=== PATIENT | male | born 1950 | race Caucasian/White ===

== ENCOUNTER 2017-10-22 12:26 | Day surgery (SDC) | payer MEDICARE ==
[2017-10-22] MEDS: NS 1,000 ML IV (13:29)
[2017-10-22] MEDS ORDERED: PROPOFOL 200 MG/20 ML VIAL As Ordered ×2 (14:30)
[2017-10-22] MEDS ORDERED: LIDOCAINE 2% INJ 100 MG/5 ML SDV (FOR ANES.) As Ordered (14:30)
[2017-10-22] MEDS ORDERED: MIDAZOLAM INJ 2 MG/2 ML VIAL (J2250) As Ordered (14:35)
== END 2017-10-22 15:24 | disposition home or self-care (01) ==
LOC: M OPP 12:26
DX: Z12.11 Encounter for screening for malignant neoplasm of colon (principal); Z86.010 Personal history of colon polyps; K64.0 First degree hemorrhoids; I25.10 Atherosclerotic heart disease of native coronary artery without angina pectoris; I10 Essential (primary) hypertension; E78.5 Hyperlipidemia, unspecified; Z95.5 Presence of coronary angioplasty implant and graft; K57.30 Diverticulosis of large intestine without perforation or abscess without bleeding; K21.9 Gastro-esophageal reflux disease without esophagitis; R12 Heartburn; Z86.718 Personal history of other venous thrombosis and embolism; M54.89 Other dorsalgia; G47.30 Sleep apnea, unspecified; K82.9 Disease of gallbladder, unspecified; R06.83 Snoring; E66.9 Obesity, unspecified; Z88.8 Allergy status to other drugs, medicaments and biological substances; Z91.030 Bee allergy status; Z79.82 Long term (current) use of aspirin; Z79.899 Other long term (current) drug therapy; Z79.01 Long term (current) use of anticoagulants; Z79.52 Long term (current) use of systemic steroids
CPT/HCPCS: G0105

== ENCOUNTER 2019-01-16 06:24 | Emergency (ER) | payer MEDICARE ==
[~2019-01-16] VITALS: Ht 172.7 cm; Wt 110.0 kg
[~2019-01-16 06:24] MED LIST: BENA25CA4 PO; COUM1TAB14 PO; PRED5TA PO; VITA500T PO; [UNRECOGNIZED DRUG - OTHER]; [UNRECOGNIZED DRUG - REMARK] IV
[2019-01-16] MEDS ORDERED: ONDANSETRON 4MG/2ML VIAL (J2405) IV PRN (07:30)
[2019-01-16] MEDS ORDERED: NS 1,000 ML IV ONE (07:30)
[2019-01-16] MEDS ORDERED: MORPHINE 4 MG/ML 1ML VIAL/SYRINGE (J2270) IV PRN (07:30)
[2019-01-16 09:16] LABS: APPEARANCE, URINE CLEAR (CLEAR); BACTERIA, URINE AUTO NEGATIVE (NEGATIVE); BILIRUBIN, URINE AUTO NEGATIVE (NEGATIVE); BLOOD, URINE BLOOD 1+ (NEGATIVE); COLOR, URINE YELLOW (YELLOW); GLUCOSE, URINE (UA) AUTO NEGATIVE (NEGATIVE); KETONE, URINE AUTO NEGATIVE (NEGATIVE); LEUKOCYTE ESTERASE, URINE AUTO NEGATIVE (NEGATIVE); MUCUS, URINE SMALL (NEGATIVE); NITRITE, URINE AUTO NEGATIVE (NEGATIVE); PROTEIN, URINE AUTO NEGATIVE (NEGATIVE); RBC, URINE AUTO 4 /HPF (0-3); SPECIFIC GRAVITY URINE AUTO 1.017 (1.002-1.035); SQUAMOUS EPITHELIAL CELL UR AU 0 /HPF (0-6); WBC, URINE AUTO 1 /HPF (0-3)
--- NOTE | 2019-01-16 09:26 | REP ---
CT ABDOMEN AND PELVIS WITHOUT CONTRAST: CT abdomen and pelvis performed without the use of intravenous contrast material. Sagittal and coronal reconstruction images are performed. Visualized lung bases demonstrate a calcified granuloma medially in the left lower lobe. Liver and spleen demonstrate multiple tiny calcified granulomas. The patient has had a prior cholecystectomy. The adrenals and pancreas are grossly unremarkable. There are multiple subcentimeter intrarenal calculi bilaterally, approximately six on the right and four on the left. There is moderate right hydronephrosis which is caused by an 8 mm calculus in the proximal right ureter. There is no left hydronephrosis. There is atherosclerotic calcification of the abdominal aortic without aneurysm. I see no adenopathy in the abdomen or pelvis. There is no free air or free fluid. I see no bowel wall thickening. No pelvic mass is seen. Urinary bladder is mildly distended and grossly unremarkable. There is a small left inguinal containing fat. There are degenerative changes of the spine. IMPRESSION: There is an 8 mm calculus in the proximal right ureter causing moderate right hydronephrosis. Multiple bilateral intrarenal calculi are also noted. Electronically Signed by Marshal Murillo MD 01/17/2019 11:49 A
[2019-01-16 09:31] LABS: BASO % 0.4 % (0.0-1.0); EOS % 0.4 % (0.0-3.0); HEMATOCRIT 41.8 % (42.0-52.0); HEMOGLOBIN 14.3 g/dl (13.5-17.5); LYMPH % 10.9 % (24.0-44.0); MEAN CORPUSCULAR HEMOGLOBIN 32.3 pg (27.0-33.0); MEAN CORPUSCULAR HGB CONC 34.2 g/dl (32.0-36.5); MEAN CORPUSCULAR VOLUME 94.4 fl (80.0-96.0); MONO # 0.9 10^3/uL (0.0-0.8); MONO % 9.4 % (0.0-5.0); NEUTROPHILS # 7.4 10^3/uL (1.8-7.7); NEUTROPHILS % 78.2 % (36.0-66.0); PLATELET COUNT, AUTOMATED 211 10^3/uL (150-450); RED BLOOD COUNT 4.43 10^6/uL (4.30-6.10); WHITE BLOOD COUNT 9.5 10^3/uL (4.0-10.0)
[2019-01-16 09:39] LABS: ALBUMIN 3.9 GM/DL (3.2-5.2); ALT/SGPT 26 U/L (12-78); BILIRUBIN,DIRECT 0.1 MG/DL (0.0-0.2); BILIRUBIN,TOTAL 0.5 MG/DL (0.2-1.0); BLOOD UREA NITROGEN 19 MG/DL (7-18); CALCIUM LEVEL 9.1 MG/DL (8.8-10.2); CARBON DIOXIDE LEVEL 23 MEQ/L (21-32); CHLORIDE LEVEL 106 MEQ/L (98-107); CREATININE FOR GFR 0.87 MG/DL (0.70-1.30); GLOMERULAR FILTRATION RATE > 60.0 (>49); GLUCOSE, FASTING 113 MG/DL (70-100); POTASSIUM SERUM 4.1 MEQ/L (3.5-5.1); SODIUM LEVEL 139 MEQ/L (136-145); TOTAL PROTEIN 7.6 GM/DL (6.4-8.2)
--- NOTE | 2019-01-16 09:49 | REP ---
CHEST, TWO VIEWS: Two views of the chest performed and compared to a prior study of 09/23/2013. There is mild bibasilar fibrotic change. There is no acute infiltrate. There does not appear to be a significant cardiomegaly. The mediastinal silhouette is unchanged. There are multiple metallic clips in the right upper quadrant of the abdomen. There are degenerative changes of the spine. IMPRESSION: Stable chronic findings without acute infiltrate. Electronically Signed by Marshal Murillo MD 01/17/2019 11:51 A
[2019-01-16 09:57] VITALS: BP 162/90
[2019-01-16] MEDS ORDERED: FLOM0.4C39 PO (10:07)
[2019-01-16] MEDS ORDERED: OXYC15TA76 PO (10:07)
--- NOTE | 2019-01-16 15:16 | ECGEPIP ---
[facility] - ED Test Date: 2019-01-16 Pat Name: SAMUEL TINEO Department: Room: - Gender: Male Director Of Analytical Development: : 1950 Requested By: Lo Ferguson PA-C Order Number: [id number] Reading MD: Elvie Raya Measurements Intervals [place] Rate: 73 P: 38 VA: 158 QRS: QRSD: 109 T: 71 QT: 401 QTc: 443 Interpretive Statements SINUS RHYTHM BORDERLINE LEFT AXIS DEVIATION LEFT VENTRICULAR HYPERTROPHY AND ST-T CHANGE NO PRIOR FOR COMPARISON Electronically Signed on 01-16-2019 15:16:29 EDT by Elvie Raya
== END 2019-01-16 10:28 | disposition home or self-care (01) ==
LOC: M ED 06:24
DX: N21.1 Calculus in urethra (principal); N20.0 Calculus of kidney; D64.9 Anemia, unspecified; I10 Essential (primary) hypertension; I25.10 Atherosclerotic heart disease of native coronary artery without angina pectoris; Z91.14 Patient's other noncompliance with medication regimen; G89.29 Other chronic pain; M54.9 Dorsalgia, unspecified; M54.30 Sciatica, unspecified side; J30.2 Other seasonal allergic rhinitis; Z86.718 Personal history of other venous thrombosis and embolism; Z87.891 Personal history of nicotine dependence; Z79.01 Long term (current) use of anticoagulants; Z79.899 Other long term (current) drug therapy; Z88.0 Allergy status to penicillin; Z88.8 Allergy status to other drugs, medicaments and biological substances; Z91.030 Bee allergy status

== ENCOUNTER → 2019-01-18 | Outpatient (CLI) | payer MEDICARE ==
[~2019-01-18] MED LIST changes: +FLOM0.4C39 PO; +MINO1TAB PO; +OXYB10TA PO; +OXYC15TA76 PO; +OXYC1TAB15 PO; +PYRI1TAB5 PO
[2019-01-18 19:33] LABS: APPEARANCE, URINE CLEAR (CLEAR); BACTERIA, URINE AUTO NEGATIVE (NEGATIVE); BILIRUBIN, URINE AUTO NEGATIVE (NEGATIVE); BLOOD, URINE BLOOD 1+ (NEGATIVE); COLOR, URINE YELLOW (YELLOW); GLUCOSE, URINE (UA) AUTO NEGATIVE (NEGATIVE); KETONE, URINE AUTO NEGATIVE (NEGATIVE); LEUKOCYTE ESTERASE, URINE AUTO TRACE (NEGATIVE); NITRITE, URINE AUTO NEGATIVE (NEGATIVE); PROTEIN, URINE AUTO NEGATIVE (NEGATIVE); RBC, URINE AUTO 1 /HPF (0-3); SPECIFIC GRAVITY URINE AUTO 1.013 (1.002-1.035); SQUAMOUS EPITHELIAL CELL UR AU 0 /HPF (0-6); WBC, URINE AUTO 3 /HPF (0-3)
[2019-01-18 20:04] LABS: INR 1.61; PROTHROMBIN TIME 19.4 SECONDS (12.1-14.4)
[2019-01-18 20:05] LABS: PARTIAL THROMBOPLASTIN TIME 37.1 SECONDS (25.4-37.6)
== END ==
LOC: M WUC 16:29
PROVIDERS: ATTEND Nurse Practitioner Family
DX: Z01.818 Encounter for other preprocedural examination (principal); N20.0 Calculus of kidney
CPT/HCPCS: 36415; 81001; 85610; 85730; 87086; G0463

== ENCOUNTER 2019-01-20 13:37 | Day surgery (SDC) | payer MEDICARE ==
[~2019-01-20] VITALS: Ht 172.7 cm; Wt 108.9 kg
[~2019-01-20 13:37] MED LIST changes: +LIDOCAINE 1% MDV 20ML VIAL SQ PRN; +LR 1,000 ML IV ONE; -MINO1TAB PO; -OXYB10TA PO; -OXYC1TAB15 PO; -PYRI1TAB5 PO
[2019-01-20] MEDS ORDERED: CIPROFLOXACIN/D5W 400 MG/200 ML BAG (J0744) As Ordered ONE (14:06)
[2019-01-20] MEDS ORDERED: CIPROFLOXACIN 400 MG in APPROPRIATE DILUENT 1 EA IV ONE (14:30)
[2019-01-20 14:52] LABS: INR 1.68
[2019-01-20] MEDS ORDERED: ePHEDrine SULFATE 25 MG/5 ML(5MG/ML) SYRINGE As Ordered ONE (15:44)
[2019-01-20] MEDS ORDERED: PROPOFOL 200 MG/20 ML VIAL As Ordered ONE (15:44)
[2019-01-20] MEDS ORDERED: LIDOCAINE 2% INJ 100 MG/5 ML SDV (FOR ANES.) As Ordered ONE (15:44)
[2019-01-20] MEDS ORDERED: fentaNYL 100 MCG/2 ML INJECTION (J3010) As Ordered ONE ×4 (15:44→17:38)
[2019-01-20] MEDS ORDERED: MIDAZOLAM INJ 2 MG/2 ML VIAL (J2250) As Ordered ONE (15:44)
[2019-01-20] MEDS ORDERED: ONDANSETRON 4MG/2ML VIAL (J2405) As Ordered ONE ×2 (15:52→17:38)
[2019-01-20] MEDS ORDERED: dexameTHASONE 4 MG/ML 1ML VIAL (J1100) As Ordered ONE (15:52)
[2019-01-20] MEDS ORDERED: METOCLOPRAMIDE INJ 10MG/2ML VIAL (J2765) As Ordered ONE (16:41)
[2019-01-20] MEDS ORDERED: ESMOLOL INJ 100MG/10ML VIAL As Ordered ONE (17:11)
[2019-01-20] MEDS ORDERED: oxyCODONE 5MG TAB As Ordered ONE (17:38)
[2019-01-20] MEDS: oxyCODONE 5MG TAB PO PRN ×2 (17:40→18:15)
[2019-01-20] MEDS: fentaNYL 100 MCG/2 ML INJECTION (J3010) IV PRN ×4 (17:40→17:55)
[2019-01-20] MEDS ORDERED: LR 1,000 ML IV SCH (17:45)
[2019-01-20] MEDS ORDERED: ONDANSETRON 4MG/2ML VIAL (J2405) IV PRN (17:45)
[2019-01-20] MEDS ORDERED: oxyBUTYnin 5 MG TAB PO ONE (17:45)
[2019-01-20] MEDS ORDERED: PYRI1TAB5 PO (17:51)
[2019-01-20] MEDS ORDERED: OXYB10TA PO (17:51)
[2019-01-20] MEDS ORDERED: MINO1TAB PO (17:51)
[2019-01-20] MEDS ORDERED: OXYC1TAB15 PO (17:51)
[2019-01-20 21:15] VITALS: BP 161/70
--- NOTE | 2019-01-21 07:49 | REP ---
C-ARM VIEWS DURING URETERAL STENT PLACEMENT: Five C-Arm views performed during ureteral stent placement. A right ureteral stent is placed with the proximal end coiled in the right renal pelvis and the distal end coiled in the urinary bladder. 11 seconds fluoroscopy time utilized. Electronically Signed by Marshal Murillo MD 01/24/2019 09:56 A
--- NOTE | 2019-01-22 11:31 | RO ---
DATE OF PROCEDURE: 01/20/2019 PREOPERATIVE DIAGNOSES: Right ureteral stone with hydroureteronephrosis with right renal stones and small left renal stones. POSTOPERATIVE DIAGNOSES: Right ureteral stone with hydroureteronephrosis with right renal stones and small left renal stones. PROCEDURE PERFORMED: Right ureteroscopic stone extraction with laser lithotripsy of ureteral stone, laser lithotripsy and basket extraction of renal stones, multilevel. Additional procedure is stent placement. SURGEON: Michael Zamora MD BASEBALL SCOUT: ANESTHESIA: General. INDICATION: This 68-year-old man with a history of chronic back pain presented with a CT scan showing an 8-mm stone in the right proximal ureter causing moderate hydroureteronephrosis, as well as bilateral renal stones with large volume stones on the right. He has been on oxycodone and Flomax. He is on chronic Coumadin therapy for deep venous thrombosis (DVT), which precludes the use of lithotripsy or percutaneous nephrostolithotomy in this case. DESCRIPTION OF PROCEDURE: After obtaining informed consent from the patient, he was taken to the operating room where after induction of adequate anesthetic, he was prepped and draped in the usual manner. The 22-Venezuelan diagnostic cystoscope was advanced into the bladder and the bladder inspected. No stones or abnormalities were noted. A wire was negotiated past the stone to the kidney under fluoroscopic control. We advanced the flexible ureterorenoscope without requirement of dilation to the stone. There was noted to be a fair amount of inflammatory response to the stone with some narrowing of the ureter just distal to it. We were able to get through this area, and I used the 200-micron Holmium laser fiber. We were able to break the stone into multiple pieces. Some of these displaced in the kidney. Others were irrigated to the bladder with some additional pieces removed to the basket. We then were able to pass the scope to the kidney and carefully inspected all calyces. Multiple large stones were encountered in the upper pole, mid kidney, and lower pole. We used the 200-micron Holmium laser fiber to break these stones into small pieces. The urine in the renal pelvis was quite murky, likely aggravated by the patient's chronic anticoagulation. We did break all visible stones but felt that with the large volume of sand and small fragments, he would likely need a second procedure in a few weeks to deal with evacuation of his large stone volume. We did remove a portion of the stone with a basket, and a single pass of the ureteroscope was required for this case. The procedure was concluded by re-passing the guidewire and passing the 6-Venezuelan universal stent over the wire positioned fluoroscopically in the kidney and bladder. The string was detached, the bladder emptied, and the patient to recovery in satisfactory condition. DISPOSITION: Dismissed home on oxybutynin 10 XL one daily, oxycodone 7.5 mg, Septra DS one by mouth at bedtime, and Pyridium 200 three times a day as needed dysuria. I would like him to return to the office to see in 2 weeks' time, at which time he can be pre-opped for a second-stage ureteroscopic stone extraction the following week. At that time, we should be able to safely use a ureteral access sheath to clear the right kidney. This plan is discussed with the patient's , and she is agreeable to this plan. He is dismissed home today. There were no intraoperative complications.
[2019-01-27 00:08] LABS: Uric Acid 100 % (.)
== END 2019-01-20 21:30 | disposition home or self-care (01) ==
LOC: M SDC 13:37
PROVIDERS: ATTEND Urology
DX: N13.2 Hydronephrosis with renal and ureteral calculous obstruction (principal); N20.0 Calculus of kidney; I25.10 Atherosclerotic heart disease of native coronary artery without angina pectoris; G47.30 Sleep apnea, unspecified; I10 Essential (primary) hypertension; E78.5 Hyperlipidemia, unspecified; K21.9 Gastro-esophageal reflux disease without esophagitis; Z91.030 Bee allergy status; Z88.0 Allergy status to penicillin; Z79.01 Long term (current) use of anticoagulants; Z79.899 Other long term (current) drug therapy
CPT/HCPCS: 36415; 52356; 74420; 82360; 85610; 88300; C1769; C2617; J0744; J1100; J2250; J2405; J2765; J3010

== ENCOUNTER → 2019-02-02 | Outpatient (CLI) | payer MEDICARE ==
[~2019-02-02] MED LIST changes: +ALLO10TA PO; +CODE30TA PO; -LIDOCAINE 1% MDV 20ML VIAL SQ PRN; -LR 1,000 ML IV ONE; +MINO1TAB PO; +OXYB10TA PO; +OXYC1TAB15 PO; +POTA10808 PO; +PYRI1TAB5 PO
[2019-02-02 13:07] LABS: HEMATOCRIT 38.4 % (42.0-52.0); HEMOGLOBIN 12.5 g/dl (13.5-17.5); MEAN CORPUSCULAR HEMOGLOBIN 31.6 pg (27.0-33.0); MEAN CORPUSCULAR HGB CONC 32.6 g/dl (32.0-36.5); MEAN CORPUSCULAR VOLUME 97.2 fl (80.0-96.0); PLATELET COUNT, AUTOMATED 265 10^3/uL (150-450); RED BLOOD COUNT 3.95 10^6/uL (4.30-6.10)
[2019-02-02 13:28] LABS: INR 1.74; PROTHROMBIN TIME 20.1 SECONDS (11.8-14.0)
[2019-02-02 13:29] LABS: PARTIAL THROMBOPLASTIN TIME 33.1 SECONDS (25.0-38.4)
[2019-02-02 13:32] LABS: BLOOD UREA NITROGEN 19 MG/DL (7-18); CALCIUM LEVEL 8.9 MG/DL (8.8-10.2); CARBON DIOXIDE LEVEL 26 MEQ/L (21-32); CHLORIDE LEVEL 109 MEQ/L (98-107); CREATININE FOR GFR 1.01 MG/DL (0.70-1.30); GLOMERULAR FILTRATION RATE > 60.0 (>49); GLUCOSE, FASTING 93 MG/DL (70-100); POTASSIUM SERUM 4.2 MEQ/L (3.5-5.1); SODIUM LEVEL 142 MEQ/L (136-145)
[2019-02-02 13:35] LABS: APPEARANCE, URINE HAZY (CLEAR); BACTERIA, URINE AUTO 1+ (NEGATIVE); BILIRUBIN, URINE AUTO NEGATIVE (NEGATIVE); BLOOD, URINE BLOOD 2+ (NEGATIVE); COLOR, URINE YELLOW (YELLOW); GLUCOSE, URINE (UA) AUTO NEGATIVE (NEGATIVE); KETONE, URINE AUTO NEGATIVE (NEGATIVE); LEUKOCYTE ESTERASE, URINE AUTO TRACE (NEGATIVE); MUCUS, URINE SMALL (NEGATIVE); NITRITE, URINE AUTO NEGATIVE (NEGATIVE); PROTEIN, URINE AUTO NEGATIVE (NEGATIVE); RBC, URINE AUTO 75 /HPF (0-3); SPECIFIC GRAVITY URINE AUTO 1.017 (1.002-1.035); SQUAMOUS EPITHELIAL CELL UR AU 0 /HPF (0-6); UROBILINOGEN, URINE AUTO 0.2 mg/dL (0.0-2.0); WBC, URINE AUTO 13 /HPF (0-3)
== END ==
LOC: M WUC 09:32
PROVIDERS: ATTEND Nurse Practitioner Family
DX: Z01.818 Encounter for other preprocedural examination (principal); N20.0 Calculus of kidney
CPT/HCPCS: 36415; 80048; 81001; 85027; 85610; 85730; 87086; G0463

== ENCOUNTER 2019-02-07 12:38 | Day surgery (SDC) | payer MEDICARE ==
[~2019-02-07] VITALS: Ht 172.7 cm; Wt 105.7 kg
[~2019-02-07 12:38] MED LIST changes: -ALLO10TA PO; +ALLOPURINOL 100 MG TAB PO SCH; +CIPROFLOXACIN 400 MG in APPROPRIATE DILUENT 1 EA IV ONE; -CODE30TA PO; +CONRAY-60 60% 50ML VIAL (Q9961) As Ordered ONE; +EMLA CREAM 5GM (LIDOCAINE/PRILOCAINE) TOP PRN; +LR 1,000 ML IV ONE; -OXYB10TA PO; +OXYB10TA2 PO; -POTA10808 PO
[2019-02-07] MEDS ORDERED: PROPOFOL 200 MG/20 ML VIAL As Ordered ONE ×2 (13:02→14:32)
[2019-02-07] MEDS ORDERED: LIDOCAINE 2% INJ 100 MG/5 ML SDV (FOR ANES.) As Ordered ONE (13:03)
[2019-02-07] MEDS ORDERED: ONDANSETRON 4MG/2ML VIAL (J2405) As Ordered ONE (13:09)
[2019-02-07] MEDS ORDERED: dexameTHASONE 4 MG/ML 1ML VIAL (J1100) As Ordered ONE (13:09)
[2019-02-07] MEDS ORDERED: MIDAZOLAM INJ 2 MG/2 ML VIAL (J2250) As Ordered ONE (13:10)
[2019-02-07] MEDS ORDERED: fentaNYL 100 MCG/2 ML INJECTION (J3010) As Ordered ONE (13:10)
[2019-02-07 13:41] LABS: INR 1.58; PROTHROMBIN TIME 18.6 SECONDS (11.8-14.0)
[2019-02-07] MEDS ORDERED: CODE30TA PO (13:51)
[2019-02-07] MEDS ORDERED: METOCLOPRAMIDE INJ 10MG/2ML VIAL (J2765) As Ordered ONE (14:32)
[2019-02-07] MEDS ORDERED: OXYC1TAB15 PO (15:57)
[2019-02-07] MEDS ORDERED: ANEXSIA, NORCO 7.5MG/325MG TABLET(HYDROCODONE/APAP) PO PRN (16:00)
[2019-02-07] MEDS: fentaNYL 100 MCG/2 ML INJECTION (J3010) IV PRN ×4 (16:04→16:19)
[2019-02-07] MEDS ORDERED: POTA10808 PO (16:12)
[2019-02-07] MEDS ORDERED: ALLO10TA PO (16:12)
[2019-02-07] MEDS ORDERED: ONDANSETRON 4MG/2ML VIAL (J2405) IV PRN (16:15)
[2019-02-07] MEDS ORDERED: METOCLOPRAMIDE INJ 10MG/2ML VIAL (J2765) IV PRN (16:15)
[2019-02-07] MEDS ORDERED: PERCOCET 5MG/325MG TAB PO PRN (16:15)
[2019-02-07] MEDS ORDERED: MEPERIDINE INJ 25 MG/ML VIAL (J2175) IV PRN (16:15)
[2019-02-07] MEDS ORDERED: LR 1,000 ML IV SCH (16:15)
--- NOTE | 2019-02-07 16:19 | REP ---
Retrograde pyelogram: Comparison is 01/20/2019. There is a right ureteral stent, as previously. The distal pigtails in satisfactory position. The proximal pigtail is excluded at the superior film margin. No calcifications are identified. The fluoroscopic exposure time is 17 seconds. The fluoroscopic images performed with last image hold technology and requires no additional radiation. Electronically Signed by Marshal Barahona MD 02/07/2019 04:11 P
[2019-02-07 17:35] VITALS: BP 188/89
[2019-02-07] MEDS ORDERED: POTASSIUM CITRATE 1080 MG (10MEQ) TAB PO SCH (18:00)
--- NOTE | 2019-02-07 21:52 | RO ---
DATE OF PROCEDURE: 02/07/2019 PREPROCEDURE DIAGNOSIS: Right renal and ureteral stones. POSTPROCEDURE DIAGNOSIS: Right renal and ureteral stones. PROCEDURE: Right ureteroscopic stone extraction with laser lithotripsy and basket extraction of stones, stent placement. SURGEON: Michael Zamora MD HOME SCHOOL TEACHER: ANESTHESIA: General. INDICATION: This 68-year-old man comes for a second stage procedure to deal with large volume stone disease on the right. He is on chronic anticoagulation because of atrial fibrillation. His previous stone analysis showed uric acid, urolithiasis. He reports marked improvement in chronic back pain and gait since treatment of his previous stone with stent placement. At that time, we were unable to completely clear his kidney of stones due to poor visibility and brought him back for a second stage procedure. We left him on his Coumadin therapy. INR today is 1.74. His culture is negative. DESCRIPTION OF PROCEDURE: After informed consent of the patient, he was taken to the operating where after induction of adequate anesthetic, he was prepped and draped in the usual manner. The 22-Japanese diagnostic cystoscope was advanced to the bladder. The stent was visualized and grasped with alligator forceps and withdrawn. The wire was passed to the kidney, and the 12/14 ureteral access sheath was advanced without difficulty to the proximal ureter. We then used the flexible ureterorenoscope to visualize all calyces. We removed multiple stone fragments from the renal pelvis. There were two large stone fragments that we took apart with the 200-micron Holmium laser fiber. We then used both the NGage and NCompass baskets to remove the remaining fragments from the kidney. Final inspection showed no significant stone remaining, and the ureter was carefully visualized on sheath removal. There was no significant ureteral injury. The wire was re-passed to the kidney, and the procedure was concluded with placement of a 6-Japanese [place] stent with string left attached. The bladder was emptied and the patient to recovery in satisfactory condition. DISPOSITION: Dismissed home to followup on 02/13/2019 with shireen for stent removal. Diet as tolerated. Activity light. Medications: Renew oxycodone. Continue Minocin 50 mg nightly, oxybutynin 5 mg three times a day and Pyridium, which the patient still has. 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
== END 2019-02-07 18:07 | disposition home or self-care (01) ==
LOC: M SDC 12:38
PROVIDERS: ATTEND Urology
DX: N20.0 Calculus of kidney (principal); N20.1 Calculus of ureter; I25.10 Atherosclerotic heart disease of native coronary artery without angina pectoris; I10 Essential (primary) hypertension; E78.5 Hyperlipidemia, unspecified; K21.9 Gastro-esophageal reflux disease without esophagitis; G47.30 Sleep apnea, unspecified; Z79.01 Long term (current) use of anticoagulants; Z79.899 Other long term (current) drug therapy; L40.8 Other psoriasis; Z88.8 Allergy status to other drugs, medicaments and biological substances; Z91.030 Bee allergy status
CPT/HCPCS: 36415; 52356; 74420; 85610; 88300; C1894; C2617; J0744; J1100; J2250; J2405; J2765; J3010

== ENCOUNTER → 2019-08-22 | Outpatient (REF) | payer MEDICARE ==
[~2019-08-22] MED LIST changes: +ALLO10TA PO; -ALLOPURINOL 100 MG TAB PO SCH; -CIPROFLOXACIN 400 MG in APPROPRIATE DILUENT 1 EA IV ONE; +CODE30TA PO; -CONRAY-60 60% 50ML VIAL (Q9961) As Ordered ONE; -EMLA CREAM 5GM (LIDOCAINE/PRILOCAINE) TOP PRN; -LR 1,000 ML IV ONE; +POTA10808 PO
== END ==
LOC: M LAB REF 12:17
PROVIDERS: ATTEND Internal Medicine
DX: Z87.442 Personal history of urinary calculi (principal)

== ENCOUNTER → 2019-09-06 | Outpatient (CLI) | payer MEDICARE ==
[~2019-09-06] MED LIST changes: -OXYB10TA2 PO; +OXYB10TA23 PO
--- NOTE | 2019-09-06 17:31 | REP ---
Right hand four views: Mineralization and joint spaces are normal. There is no fracture or dislocation. There are accessory ossicles inferior to the pisiform. There are no foreign bodies. Impression: Accessory ossicles inferior to the pisiform. Otherwise, negative right hand. Electronically Signed by Marshal Barahona MD 09/06/2019 05:22 P
== END ==
LOC: M WUC 15:45
PROVIDERS: ATTEND Nurse Practitioner Family
DX: M79.641 Pain in right hand (principal)

== ENCOUNTER → 2020-02-23 | Outpatient (REF) | payer MEDICARE ==
[~2020-02-23] MED LIST changes: -COUM1TAB14 PO; +COUM4TAB8 PO; +OXYC-1 PO; -OXYC15TA76 PO; +VITA-243 PO; -VITA500T PO
[2020-02-23 18:47] LABS: APPEARANCE, URINE CLOUDY (CLEAR); BACTERIA, URINE AUTO NEGATIVE (NEGATIVE); BILIRUBIN, URINE AUTO NEGATIVE (NEGATIVE); BLOOD, URINE BLOOD NEGATIVE (NEGATIVE); COLOR, URINE YELLOW (YELLOW); GLUCOSE, URINE (UA) AUTO NEGATIVE (NEGATIVE); KETONE, URINE AUTO NEGATIVE (NEGATIVE); LEUKOCYTE ESTERASE, URINE AUTO NEGATIVE (NEGATIVE); MUCUS, URINE SMALL (NEGATIVE); NITRITE, URINE AUTO NEGATIVE (NEGATIVE); PROTEIN, URINE AUTO NEGATIVE (NEGATIVE); RBC, URINE AUTO 0 /HPF (0-3); SPECIFIC GRAVITY URINE AUTO 1.016 (1.002-1.035); SQUAMOUS EPITHELIAL CELL UR AU 0 /HPF (0-6); UROBILINOGEN, URINE AUTO 0.2 mg/dL (0.0-2.0); WBC, URINE AUTO 1 /HPF (0-3)
== END ==
LOC: M SMT 17:28
PROVIDERS: ATTEND Nurse Practitioner Family
DX: N20.0 Calculus of kidney (principal)
CPT/HCPCS: 81001; G0463

== ENCOUNTER → 2020-02-28 | Outpatient (CLI) | payer MEDICARE ==
--- NOTE | 2020-02-28 16:00 | REP ---
RENAL ULTRASOUND: Real-time sonographic evaluation of the kidneys performed. The kidneys are normal in size and echotexture, right kidney measuring 12.7 x 5.2 x 6.6 cm and left kidney 12.5 x 6.1 x 6.9 cm. There is no hydronephrosis bilaterally. No renal mass or stone is visualized sonographically. Resistive index bilaterally with duplex Doppler evaluation of 0.67. IMPRESSION: Negative renal ultrasound.
== END ==
LOC: M PLAIMG 11:31
PROVIDERS: ATTEND Nurse Practitioner Family
DX: N20.0 Calculus of kidney (principal)

== ENCOUNTER 2020-11-20 03:38 | Emergency (ER) | payer MEDICARE ==
[~2020-11-20] VITALS: Ht 172.7 cm; Wt 109.0 kg
--- NOTE | 2020-11-20 04:36 | REPVR ---
PROCEDURE INFORMATION: Exam: XR Chest Exam date and time: 11/20/2020 4:00 AM Age: 70 years old Clinical indication: Chest pain; Type not specified TECHNIQUE: Imaging protocol: XR of the chest Views: 1 view. COMPARISON: CR Chest, 2 view PA, Lat 01/16/2019 8:20 AM FINDINGS: Lungs: There are bilateral lower lung zones, left more than right fibrotic like changes, grossly unchanged since the prior exam. Pleural spaces: Unremarkable. No pleural effusion. No pneumothorax. Heart/Mediastinum: Unremarkable. No cardiomegaly. Bones/joints: Unremarkable. IMPRESSION: Chronic scar like changes in the lower lung zones, left more than right with no radiographic evidence of acute infiltrate consolidation. Electronically signed by: Eric Jara On 11/20/2020 04:36:47 AM
[2020-11-20] MEDS ORDERED: ONDANSETRON 4MG/2ML VIAL IV ONE (05:00)
[2020-11-20] MEDS ORDERED: MORPHINE 4 MG/ML 1ML VIAL/SYRINGE (J2270) IV PRN (05:00)
[2020-11-20 05:13] LABS: BASO # 0.1 10^3/uL (0.0-0.2); BASO % 1.1 % (0.0-1.0); EOS # 0.2 10^3/uL (0.0-0.5); EOS % 3.7 % (0.0-3.0); HEMATOCRIT 41.6 % (42.0-52.0); HEMOGLOBIN 14.1 g/dl (13.5-17.5); LYMPH # 1.4 10^3/uL (1.5-5.0); LYMPH % 26.1 % (24.0-44.0); MEAN CORPUSCULAR HEMOGLOBIN 33.7 pg (27.0-33.0); MEAN CORPUSCULAR HGB CONC 33.9 g/dl (32.0-36.5); MEAN CORPUSCULAR VOLUME 99.5 fl (80.0-96.0); MONO # 0.8 10^3/uL (0.0-0.8); MONO % 13.9 % (2.0-8.0); NEUTROPHILS % 54.8 % (36.0-66.0); PLATELET COUNT, AUTOMATED 169 10^3/uL (150-450); RED BLOOD COUNT 4.18 10^6/uL (4.30-6.10); WHITE BLOOD COUNT 5.5 10^3/uL (4.0-10.0)
[2020-11-20 05:39] LABS: ALBUMIN 3.7 GM/DL (3.2-5.2); ALT/SGPT 39 U/L (12-78); BILIRUBIN,DIRECT < 0.1 MG/DL (0.0-0.2); BILIRUBIN,TOTAL 0.3 MG/DL (0.2-1.0); BLOOD UREA NITROGEN 23 MG/DL (7-18); CALCIUM LEVEL 8.9 MG/DL (8.8-10.2); CARBON DIOXIDE LEVEL 28 MEQ/L (21-32); CHLORIDE LEVEL 109 MEQ/L (98-107); CK-MB VALUE MASS 2.7 NG/ML (<3.6); CPK CREATINE PHOSPHOKINASE 98 U/L (39-308); GLOMERULAR FILTRATION RATE > 60.0 (>42); GLUCOSE, FASTING 105 MG/DL (70-100); LIPASE 73 U/L (73-393); MB/CK RELATIVE INDEX 2.76 (< OR =4); SODIUM LEVEL 140 MEQ/L (136-145); TROPONIN I 0.06 NG/ML (< 0.10)
[2020-11-20 05:43] LABS: INR 1.87; PARTIAL THROMBOPLASTIN TIME 35.4 SECONDS (24.2-38.5); PROTHROMBIN TIME 21.9 SECONDS (12.5-14.3)
[2020-11-20] MEDS ORDERED: ISOVUE-370 76% 100ML VIAL As Ordered ONE (05:49)
--- NOTE | 2020-11-20 06:24 | REPVR ---
PROCEDURE INFORMATION: Exam: CTA Chest With Contrast Exam date and time: 11/20/2020 5:43 AM Age: 70 years old Clinical indication: Chest pain; Type not specified; Additional info: Chest pain, HX of dvt TECHNIQUE: Imaging protocol: Computed tomographic angiography of the chest with contrast. 3D rendering (Not supervised by radiologist): MIP and/or 3D reconstructed images were created by the technologist. Radiation optimization: All CT scans at this facility use at least one of these dose optimization techniques: automated exposure control; mA and/or kV adjustment per patient size (includes targeted exams where dose is matched to clinical indication); or iterative reconstruction. Contrast material: ISO; Contrast volume: 75 ml; Contrast route: INTRAVENOUS (IV); COMPARISON: CR Chest, 2 view PA, Lat 11/20/2020 4:00 AM FINDINGS: Pulmonary arteries: Normal. No pulmonary emboli. Aorta: There is mild calcifications at the aortic root. No aortic aneurysm. No aortic dissection. Lungs: There is 1 cm medial left lung base calcified granuloma. Bibasilar linear atelectases and or scar with some volume loss and accentuation the extrapleural fat is noted. There is a 3 mm nodule in the right upper lobe on series 401, image 52 . There is 2 mm right apical subpleural lung nodule on series 401, image 36. There is 3 mm right upper lobe sub pleural nodule on axial image 59. There is 2-3 mm nodule in the left upper lobe on axial image 73. Pleural spaces: See "Lungs" finding. Heart: The heart is normal in size. There is no pericardial effusion. There is moderate coronary vascular calcifications. Lymph nodes: Unremarkable. No enlarged lymph nodes. Liver: Scattered small hepatic calcified granulomas seen. Gallbladder and bile ducts: The patient is status post cholecystectomy. Spleen: Multiple small calcified granuloma seen in the spleen. Bones/joints: There is anterior cervical spine flowing syndesmophytes. There is diffuse bony osteopenia. Soft tissues: Unremarkable. IMPRESSION: 1. No CT evidence of pulmonary embolism or right heart strain. 2. Mild bibasilar chronic changes with linear scar versus atelectasis with some volume loss. 3. Few scattered small parenchymal lung nodules the largest measuring 3 mm.For patients at low risk (minimal or absent history of smoking and of other known risk factors), no routine follow-up is indicated. For patients at high risk (history of smoking or of other known risk factors), consider optional CT Chest at 12 months. (Reference: Ludy) 4. Calcified splenic and hepatic granulomas and 1 cm medial left lung base calcified granuloma. 5. Moderate coronary vascular calcifications. REFERENCES: Ludy Hood, et al. Guidelines for Management of Incidental Pulmonary Nodules Detected on CT Images: From the Fleischner Society 2017. Radiology. 2017;284(1):228-243. Electronically signed by: Eric Jara On 11/20/2020 06:24:40 AM
[2020-11-20 08:16] LABS: CK-MB VALUE MASS 8.2 NG/ML (<3.6); MB/CK RELATIVE INDEX 6.67 (< OR =4); TROPONIN I 0.81 NG/ML (< 0.10)
[2020-11-20] MEDS ORDERED: HEPARIN SOD (PORCINE) 5000UNITS/ML 1ML VIAL/SYRINGE IV ONE (09:15)
[2020-11-20] MEDS ORDERED: HEPARIN DRIP 25,000 UNITS in IV 1 EA IV SCH (09:15)
[2020-11-20 10:31] VITALS: BP 158/73
--- NOTE | 2020-11-20 13:20 | ECGEPIP ---
[facility] - ED Test Date: 2020-11-20 Pat Name: SAMUEL TINEO Department: Room: - Gender: Male Boiler/Chiller Technician: : 1950 Requested By: BRIAN Sibley Order Number: [id number] Reading MD: Elvie Raya Measurements Intervals [place] Rate: 97 P: 47 NM: 162 QRS: -32 QRSD: 92 T: 47 QT: 370 QTc: 469 Interpretive Statements Normal sinus rhythm Left axis deviation Incomplete right bundle branch block Marked ST abnormality, possible subendocardial injury, compared 01/16/19, clinical c correlation required Electronically Signed on 11-20-2020 13:19:58 EDT by Elvie Raya
--- NOTE | 2020-11-20 13:21 | ECGEPIP ---
[facility] - ED Test Date: 2020-11-20 Pat Name: SAMUEL TINEO Department: Room: - Gender: Male Conditioner Tumbler: VC : 1950 Requested By: Jake Ferris Order Number: [id number] Reading MD: Elvie Raya Measurements Intervals [place] Rate: 76 P: 47 TN: 160 QRS: -23 QRSD: 90 T: 198 QT: 392 QTc: 441 Interpretive Statements Normal sinus rhythm Nonspecific ST and T wave abnormality less pronounced compared 11/20/20 4:40 Electronically Signed on 11-20-2020 13:20:40 EDT by Elvie Raya
== END 2020-11-20 10:20 | disposition short-term general hospital (02) ==
LOC: M ED 03:38
DX: I21.4 Non-ST elevation (NSTEMI) myocardial infarction (principal); R91.8 Other nonspecific abnormal finding of lung field; I25.10 Atherosclerotic heart disease of native coronary artery without angina pectoris; I25.2 Old myocardial infarction; Z86.718 Personal history of other venous thrombosis and embolism; Z88.0 Allergy status to penicillin; Z88.8 Allergy status to other drugs, medicaments and biological substances; Z91.030 Bee allergy status; Z79.899 Other long term (current) drug therapy; Z79.01 Long term (current) use of anticoagulants
CPT/HCPCS: 71045; 71275; 80048; 80076; 82550; 82553; 83690; 84484; 85025; 85610; 85730; 93005; 93041; 94760; 96365; 99285; J1644; Q9967

== ENCOUNTER → 2021-03-19 | Outpatient (CLI) | payer MEDICARE ==
[~2021-03-19] MED LIST changes: -OXYC1TAB15 PO; +OXYC7.5T3 PO
--- NOTE | 2021-03-19 13:41 | REP ---
INDICATION: KIDNEY STONES. COMPARISON: Renal ultrasound dated 02/28/2020 and abdomen/pelvis CT dated 01/16/2019. TECHNIQUE: Multiple ultrasonographic images of the kidneys and bladder. FINDINGS: On the comparison CT multiple small nonobstructive renal calculi are identified bilaterally in addition to an obstructive calculus in the right ureter. The size same findings were also present on the comparison ultrasound dated 02/28/2020. On the study today The right kidney measures 12.5 x 6.7 x 5.8 cm. The left kidney measures 12.6 by 5.6 x 6.6 cm. The kidneys are normal size. Renal cortical echogenicity is normal bilaterally. There is no hydronephrosis or hydroureter on the right or the left. No renal calculi are identified by ultrasound today. There are no solid or cystic renal masses on the right or the left. Bladder: The bladder is almost completely empty and cannot be further evaluated. IMPRESSION: No renal calculi are identified by ultrasound today. There is no hydronephrosis on the right or the left. There are no solid or cystic masses on the right or the left. Essentially negative renal ultrasound. The bladder is empty and cannot be further evaluated. <Electronically signed by Marshal Barahona > 03/19/21 [id number]
== END ==
LOC: M RAD 10:05
PROVIDERS: ATTEND Nurse Practitioner Family
DX: N20.0 Calculus of kidney (principal)

== ENCOUNTER → 2021-05-12 | Outpatient (CLI) | payer MEDICARE ==
[~2021-05-12] MED LIST changes: -MINO1TAB PO; +MINO45TA PO
--- NOTE | 2021-05-12 15:29 | REP ---
INDICATION: PAIN AFTER FALL. COMPARISON: None. TECHNIQUE: A single AP view of the pelvis was performed. FINDINGS: There is advanced asymmetric right hip joint space narrowing with some evidence of lateral subluxation. There is prominent marginal osteophytosis and subchondral sclerosis. Mild to moderate left hip joint space narrowing is identified. IMPRESSION: Chronic changes bilateral right greater than left as described above. <Electronically signed by Benny Burton > 05/12/21 [id number]
--- NOTE | 2021-05-12 15:32 | REP ---
INDICATION: PAIN AFTER FALL. COMPARISON: None. TECHNIQUE: Five views FINDINGS: There is bilateral marginal osteophytosis heaviest T12-L1 and L1-2 on the right where there is complete bridging osteophytosis. There is moderate posterior disc space narrowing at every level. Vertebral body height and alignment is within normal limits. Degenerative facet joint changes are present at every level bilaterally. There is anterior lipping at every level. IMPRESSION: Chronic changes as described above. <Electronically signed by Benny Burton > 05/12/21 [id number]
== END ==
LOC: M WUC 14:45
PROVIDERS: ATTEND Chiropractor
DX: M25.78 Osteophyte, vertebrae (principal); M54.5 Low back pain

== ENCOUNTER → 2021-06-13 | Outpatient (REF) | payer MEDICARE ==
[2021-06-16 18:07] LABS: Lyme Disease IgG/IgM Antibodie <0.91 ISR (0.00-0.90); Lyme Disease IgM Ab Quantitati <0.80 index (0.00-0.79)
== END ==
LOC: M LAB REF 17:19
PROVIDERS: ATTEND Internal Medicine
DX: Z11.9 Encounter for screening for infectious and parasitic diseases, unspecified (principal); W57.XXXA Bitten or stung by nonvenomous insect and other nonvenomous arthropods, initial encounter

== ENCOUNTER → 2021-09-26 | Outpatient (REF) | payer MEDICARE ==
[2021-09-26 17:32] LABS: PERCENT SATURATION 22.1 % (19.7-50.0)
== END ==
LOC: M LAB REF 16:14
PROVIDERS: ATTEND Internal Medicine
DX: M25.551 Pain in right hip (principal); M16.11 Unilateral primary osteoarthritis, right hip

== ENCOUNTER → 2022-03-17 | Outpatient (CLI) | payer MEDICARE | LOC: M RAD 09:51 | PROVIDERS: ATTEND Nurse Practitioner Women's Health | DX: N20.0 Calculus of kidney (principal) ==

== ENCOUNTER → 2022-10-06 | Outpatient (REF) | payer MEDICARE ==
[2022-10-06 19:01] LABS: EOSINOPHILS 2 % (0-3); LYMPHOCYTES 20 % (16-44); MONOCYTES 7 % (0-5); NEUTROPHILS 70 % (28-66); PLATELET ESTIMATE NORMAL (NORMAL)
== END ==
LOC: M LAB REF 16:22
PROVIDERS: ATTEND Internal Medicine
DX: D72.9 Disorder of white blood cells, unspecified (principal)

== ENCOUNTER 2022-10-30 10:08 | Emergency (ER) | payer MEDICARE ==
[~2022-10-30] VITALS: Ht 172.7 cm; Wt 106.8 kg
[2022-10-30] MEDS ORDERED: METO1TAB32 PO (10:26)
[2022-10-30 11:29] LABS: BASO # 0.1 10^3/uL (0.0-0.2); BASO % 0.8 % (0.0-1.0); EOS # 0.1 10^3/uL (0.0-0.5); EOS % 1.7 % (0.0-3.0); HEMATOCRIT 40.5 % (42.0-52.0); HEMOGLOBIN 13.7 g/dl (13.5-17.5); LYMPH # 0.8 10^3/uL (1.5-5.0); LYMPH % 11.9 % (24.0-44.0); MEAN CORPUSCULAR HEMOGLOBIN 34.5 pg (27.0-33.0); MEAN CORPUSCULAR HGB CONC 33.8 g/dl (32.0-36.5); MONO # 0.8 10^3/uL (0.0-0.8); NEUTROPHILS # 4.6 10^3/uL (1.5-8.5); NEUTROPHILS % 71.8 % (36.0-66.0); PLATELET COUNT, AUTOMATED 190 10^3/uL (150-450); RED BLOOD COUNT 3.97 10^6/uL (4.30-6.10); WHITE BLOOD COUNT 6.4 10^3/uL (4.0-10.0)
[2022-10-30 11:47] LABS: INR 2.64; PARTIAL THROMBOPLASTIN TIME 38.7 SECONDS (24.8-34.2); PROTHROMBIN TIME 28.6 SECONDS (12.5-14.5)
[2022-10-30 12:03] LABS: BLOOD UREA NITROGEN 11 MG/DL (9-23); CALCIUM LEVEL 8.8 MG/DL (8.3-10.6); CARBON DIOXIDE LEVEL 26 MMOL/L (20-31); CHLORIDE LEVEL 100 MMOL/L (98-107); CK-MB VALUE MASS 1.2 NG/ML (<3.6); CPK CREATINE PHOSPHOKINASE 124 U/L (46-171); CREATININE FOR GFR 0.66 MG/DL (0.70-1.30); GLOMERULAR FILTRATION RATE > 60.0 (>42); GLUCOSE, FASTING 113 MG/DL (74-106); MB/CK RELATIVE INDEX 0.96 (< OR =4); POTASSIUM SERUM 4.9 MMOL/L (3.5-5.1); SODIUM LEVEL 135 MMOL/L (136-145); THYROID STIMULATING HORMONE 2.504 uIU/ML (0.55-4.78)
[2022-10-30] MEDS ORDERED: MORPHINE 4 MG/ML 1ML VIAL IV ONE (12:20)
[2022-10-30 14:20] VITALS: BP 186/82
[2022-10-30 14:34] VITALS: O2SAT 98
== END 2022-10-30 15:00 | disposition home or self-care (01) ==
LOC: M ED 10:08
DX: S70.01XA Contusion of right hip, initial encounter (principal); M16.11 Unilateral primary osteoarthritis, right hip; W18.2XXA Fall in (into) shower or empty bathtub, initial encounter; I10 Essential (primary) hypertension; E78.5 Hyperlipidemia, unspecified; J45.909 Unspecified asthma, uncomplicated; K21.9 Gastro-esophageal reflux disease without esophagitis; Z88.0 Allergy status to penicillin; Z88.8 Allergy status to other drugs, medicaments and biological substances; Z91.030 Bee allergy status; Y92.009 Unspecified place in unspecified non-institutional (private) residence as the place of occurrence of the external cause; Z79.01 Long term (current) use of anticoagulants; Z79.810 Long term (current) use of selective estrogen receptor modulators (SERMs); Z79.899 Other long term (current) drug therapy
CPT/HCPCS: 70450; 72125; 73502; 80048; 82550; 82553; 84443; 84484; 85025; 85610; 85730; 93041; 94760; 96374; 99285; J2270

== ENCOUNTER → 2023-11-09 | Outpatient (REF) | payer MEDICARE ==
[~2023-11-09] MED LIST changes: +METO1TAB32 PO; +PERC5TAB12 PO
[2023-11-09 20:04] LABS: ATYPICAL LYMPH 2 % (0-5); EOSINOPHILS 5 % (0-3); LYMPHOCYTES 24 % (16-44); MONOCYTES 4 % (0-5); NEUTROPHILS 65 % (28-66); PLATELET ESTIMATE NORMAL (NORMAL)
== END ==
LOC: M LAB REF 16:44
PROVIDERS: ATTEND Internal Medicine
DX: D72.9 Disorder of white blood cells, unspecified (principal)

== ENCOUNTER → 2023-12-17 | Outpatient (CLI) | payer MEDICARE | LOC: M RAD 07:41 | PROVIDERS: ATTEND Internal Medicine | DX: K76.0 Fatty (change of) liver, not elsewhere classified (principal) ==

== ENCOUNTER → 2024-05-16 | Outpatient (REF) | payer MEDICARE ==
[2024-05-16 16:33] LABS: INR 3.44; PROTHROMBIN TIME 33.4 SECONDS (12.5-14.5)
== END ==
LOC: M LAB REF 16:07
PROVIDERS: ATTEND Internal Medicine
DX: Z86.718 Personal history of other venous thrombosis and embolism (principal); Z79.01 Long term (current) use of anticoagulants

== ENCOUNTER 2024-08-27 08:21 | Emergency (ER) | payer MEDICARE ==
[~2024-08-27] VITALS: Ht 172.7 cm; Wt 117.5 kg
[~2024-08-27 08:21] MED LIST changes: -POTA10808 PO; +POTA10809 PO
[2024-08-27 08:25] VITALS: BP 180/90; TEMP 98.2; O2SAT 96
[2024-08-27 09:21] LABS: BASO # 0.1 10^3/uL (0.0-0.2); BASO % 1.3 % (0.0-1.0); EOS # 0.3 10^3/uL (0.0-0.5); HEMOGLOBIN 14.5 g/dl (13.5-17.5); LYMPH # 1.3 10^3/uL (1.5-5.0); LYMPH % 20.4 % (24.0-44.0); MEAN CORPUSCULAR HEMOGLOBIN 36.2 pg (27.0-33.0); MEAN CORPUSCULAR HGB CONC 33.7 g/dl (32.0-36.5); MEAN CORPUSCULAR VOLUME 107.2 fl (80.0-96.0); MONO # 0.7 10^3/uL (0.0-0.8); MONO % 11.4 % (2.0-8.0); NEUTROPHILS # 3.9 10^3/uL (1.5-8.5); NEUTROPHILS % 62.3 % (36.0-66.0); PLATELET COUNT, AUTOMATED 174 10^3/uL (150-450); RED BLOOD COUNT 4.01 10^6/uL (4.30-6.10); WHITE BLOOD COUNT 6.2 10^3/uL (4.0-10.0)
[2024-08-27 09:34] LABS: INR 2.52; PROTHROMBIN TIME 27.2 SECONDS (12.5-14.5)
[2024-08-27] MEDS ORDERED: ISOVUE-370 76% 100ML VIAL As Ordered ONE (09:41)
[2024-08-27] MEDS: CLINDAMYCIN 900 MG in IV 1 EA IV ONE (10:55)
[2024-08-27 11:21] LABS: HEMOGLOBIN A1c 6.4 % (4.0-6.0)
[2024-08-27] MEDS ORDERED: CLEO300C2 PO (11:41)
== END 2024-08-27 12:21 | disposition home or self-care (01) ==
LOC: M ED 08:21
DX: K11.20 Sialoadenitis, unspecified (principal); I73.9 Peripheral vascular disease, unspecified; I65.23 Occlusion and stenosis of bilateral carotid arteries; J45.909 Unspecified asthma, uncomplicated; K21.9 Gastro-esophageal reflux disease without esophagitis; Z87.442 Personal history of urinary calculi; Z88.0 Allergy status to penicillin; Z88.8 Allergy status to other drugs, medicaments and biological substances; Z91.030 Bee allergy status; Z91.048 Other nonmedicinal substance allergy status; Z86.718 Personal history of other venous thrombosis and embolism; Z79.899 Other long term (current) drug therapy; Z79.01 Long term (current) use of anticoagulants
CPT/HCPCS: 70491; 80047; 83036; 85025; 85610; 86140; 96374; 99284; J0737; Q9967

== ENCOUNTER → 2024-11-07 | Outpatient (REF) | payer MEDICARE ==
[~2024-11-07] MED LIST changes: +CLEO300C2 PO
[2024-11-07 17:04] LABS: INR 2.39; PROTHROMBIN TIME 26.2 SECONDS (12.5-14.5)
[2024-11-07 18:55] LABS: ATYPICAL LYMPH 1 % (0-5); BASOPHILS 1 % (0-1); EOSINOPHILS 1 % (0-3); LYMPHOCYTES 19 % (16-44); MONOCYTES 4 % (0-5); NEUTROPHILS 74 % (28-66)
[2024-11-07 18:57] LABS: PLATELET CLUMPS SMALL AMT; PLATELET ESTIMATE NORMAL (NORMAL)
== END ==
LOC: M LAB REF 16:45
PROVIDERS: ATTEND Internal Medicine
DX: D72.9 Disorder of white blood cells, unspecified (principal); Z79.01 Long term (current) use of anticoagulants

== ENCOUNTER → 2024-11-21 | Outpatient (CLI) | payer MEDICARE ==
[~2024-11-21] MED LIST changes: +CVS1CAP2 PO; +VANC125C13 PO; +WARF-20
== END ==
LOC: M RAD 10:46
PROVIDERS: ATTEND Internal Medicine
DX: I73.9 Peripheral vascular disease, unspecified (principal)

== ENCOUNTER 2024-11-22 12:23 | Emergency (ER) | payer MEDICARE ==
[~2024-11-22] VITALS: Ht 172.7 cm; Wt 117.9 kg
[~2024-11-22 12:23] MED LIST changes: -CVS1CAP2 PO; -VANC125C13 PO; -WARF-20
[2024-11-22] MEDS ORDERED: WARF-20 (12:36)
[2024-11-22 13:27] LABS: BASO # 0.1 10^3/uL (0.0-0.2); BASO % 0.7 % (0.0-1.0); EOS # 0.3 10^3/uL (0.0-0.5); EOS % 2.2 % (0.0-3.0); HEMATOCRIT 44.6 % (42.0-52.0); HEMOGLOBIN 15.1 g/dl (13.5-17.5); LYMPH # 1.5 10^3/uL (1.5-5.0); LYMPH % 11.3 % (24.0-44.0); MEAN CORPUSCULAR HEMOGLOBIN 36.8 pg (27.0-33.0); MEAN CORPUSCULAR HGB CONC 33.9 g/dl (32.0-36.5); MEAN CORPUSCULAR VOLUME 108.8 fl (80.0-96.0); MONO # 1.7 10^3/uL (0.0-0.8); MONO % 12.6 % (2.0-8.0); NEUTROPHILS # 9.6 10^3/uL (1.5-8.5); NEUTROPHILS % 71.5 % (36.0-66.0); PLATELET COUNT, AUTOMATED 204 10^3/uL (150-450); WHITE BLOOD COUNT 13.5 10^3/uL (4.0-10.0)
[2024-11-22 14:02] LABS: ALBUMIN 2.4 G/DL (3.2-5.2); ALKALINE PHOSPHATASE 105 U/L (40-129); ALT/SGPT 60 U/L (7.0-40); AST/SGOT 80 U/L (<34); BILIRUBIN,DIRECT 0.3 MG/DL (<0.4); BILIRUBIN,TOTAL 0.6 MG/DL (0.3-1.2); BLOOD UREA NITROGEN 13 MG/DL (9-23); CARBON DIOXIDE LEVEL 24 MMOL/L (20-31); CHLORIDE LEVEL 98 MMOL/L (98-107); CREATININE FOR GFR 0.81 MG/DL (0.70-1.30); GLOMERULAR FILTRATION RATE > 90.0 (>42); GLUCOSE, FASTING 139 MG/DL (74-106); LIPASE 21 U/L (12-53); POTASSIUM SERUM 4.3 MMOL/L (3.5-5.1); SODIUM LEVEL 136 MMOL/L (136-145); TOTAL PROTEIN 6.4 G/DL (5.7-8.2)
[2024-11-22] MEDS ORDERED: ISOVUE-370 76% 100ML VIAL As Ordered ONE (15:01)
[2024-11-22] MEDS: NS (Normal Saline) 0.9% 1,000 ML IV ONE (17:55)
[2024-11-22 18:30] VITALS: BP 134/63; O2SAT 95
[2024-11-22 18:46] VITALS: TEMP 100.2
[2024-11-22] MEDS: ACETAMINOPHEN 325 MG TAB PO ONE (18:57)
[2024-11-22] MEDS ORDERED: VANC125C13 PO (19:07)
[2024-11-22] MEDS ORDERED: CVS1CAP2 PO (19:10)
== END 2024-11-22 19:31 | disposition home or self-care (01) ==
LOC: M ED 12:23
DX: A04.72 Enterocolitis due to Clostridium difficile, not specified as recurrent (principal); J91.8 Pleural effusion in other conditions classified elsewhere; J98.11 Atelectasis; K76.0 Fatty (change of) liver, not elsewhere classified; K40.20 Bilateral inguinal hernia, without obstruction or gangrene, not specified as recurrent; I25.2 Old myocardial infarction; K21.9 Gastro-esophageal reflux disease without esophagitis; J45.909 Unspecified asthma, uncomplicated; F10.10 Alcohol abuse, uncomplicated; Z88.0 Allergy status to penicillin; Z88.8 Allergy status to other drugs, medicaments and biological substances; Z91.030 Bee allergy status; Z79.899 Other long term (current) drug therapy; Z79.01 Long term (current) use of anticoagulants
CPT/HCPCS: 74177; 80048; 80076; 83690; 85025; 87507; 93041; 96360; 99285; Q9967

== ENCOUNTER 2024-11-29 14:20 | Inpatient (IN) | payer MEDICARE ==
[~2024-11-29] VITALS: Ht 172.7 cm; Wt 116.0 kg
[~2024-11-29 14:20] MED LIST changes: +CVS1CAP2 PO; +VANC125C13 PO; +WARF-20 PO
[2024-11-29] MEDS: NS (Normal Saline) 0.9% 1,000 ML IV ONE (15:10)
[2024-11-29 16:04] LABS: BASO # 0.1 10^3/uL (0.0-0.2); BASO % 0.8 % (0.0-1.0); EOS # 0.1 10^3/uL (0.0-0.5); EOS % 1.3 % (0.0-3.0); HEMATOCRIT 38.7 % (42.0-52.0); HEMOGLOBIN 13.2 g/dl (13.5-17.5); LYMPH % 13.5 % (24.0-44.0); MEAN CORPUSCULAR HEMOGLOBIN 37.3 pg (27.0-33.0); MEAN CORPUSCULAR HGB CONC 34.1 g/dl (32.0-36.5); MEAN CORPUSCULAR VOLUME 109.3 fl (80.0-96.0); MONO # 0.6 10^3/uL (0.0-0.8); MONO % 7.7 % (2.0-8.0); NEUTROPHILS # 5.4 10^3/uL (1.5-8.5); NEUTROPHILS % 75.4 % (36.0-66.0); PLATELET COUNT, AUTOMATED 208 10^3/uL (150-450); RED BLOOD COUNT 3.54 10^6/uL (4.30-6.10); WHITE BLOOD COUNT 7.2 10^3/uL (4.0-10.0)
[2024-11-29] MEDS ORDERED: FLOM0.4C39 PO (16:14)
[2024-11-29] MEDS ORDERED: VANC125C13 PO (16:14)
[2024-11-29] MEDS ORDERED: CVS1CAP2 PO (16:14)
[2024-11-29] MEDS ORDERED: ASPI81TA26 PO (16:17)
[2024-11-29] MEDS ORDERED: OLME20TA50 PO (16:17)
[2024-11-29] MEDS ORDERED: TRAM50TA2 PO (16:17)
[2024-11-29] MEDS ORDERED: HOME MED LIST COMPLETE! XX SCH (16:20)
[2024-11-29 16:32] LABS: LIPASE 20 U/L (12-53)
[2024-11-29 16:48] LABS: KETONE, URINE AUTO RFX NEGATIVE (NEGATIVE); LEUKOCYTE ESTERASE UR AUTO RFX NEGATIVE (NEGATIVE); NITRITE, URINE AUTO RFX NEGATIVE (NEGATIVE); RBC, URINE AUTO RFX 1 /HPF (0-3); SQUAM EPITHELIAL CELL UR AURFX 0 /HPF (0-6); WBC, URINE AUTO RFX 1 /HPF (0-3)
[2024-11-29 16:50] LABS: ALBUMIN 1.4 G/DL (3.2-5.2); ALKALINE PHOSPHATASE 57 U/L (40-129); ALT/SGPT 30 U/L (7.0-40); AST/SGOT 44 U/L (<34); BILIRUBIN,DIRECT 0.2 MG/DL (<0.4); BILIRUBIN,TOTAL 0.3 MG/DL (0.3-1.2); BLOOD UREA NITROGEN 8 MG/DL (9-23); CALCIUM LEVEL 4.4 MG/DL (8.3-10.6); CARBON DIOXIDE LEVEL 18 MMOL/L (20-31); CHLORIDE LEVEL 117 MMOL/L (98-107); GLOMERULAR FILTRATION RATE > 90.0 (>42); GLUCOSE, FASTING 74 MG/DL (74-106); POTASSIUM SERUM 3.1 MMOL/L (3.5-5.1); SODIUM LEVEL 145 MMOL/L (136-145); TOTAL PROTEIN 3.6 G/DL (5.7-8.2)
[2024-11-29] MEDS: POTASSIUM CHLORIDE 10MEQ SR TABLET PO ONE (17:10)
[2024-11-29 18:12] LABS: MAGNESIUM LEVEL 1.1 MG/DL (1.8-2.4)
[2024-11-29] MEDS ORDERED: ISOVUE-370 76% 100ML VIAL As Ordered ONE (18:34)
[2024-11-29] MEDS ORDERED: MAALOX 30 ML SUSP *UDC PO PRN (20:25)
[2024-11-29] MEDS ORDERED: ACETAMINOPHEN 325 MG TAB PO PRN (20:25)
[2024-11-29] MEDS: PANTOPRAZOLE 40MG VIAL IV SCH (22:11)
[2024-11-29] MEDS: LR 1,000 ML IV SCH (22:11)
[2024-11-29] MEDS: POTASSIUM CHLORIDE 10MEQ SR TABLET PO SCH (22:11)
[2024-11-29] MEDS: metroNIDAZOLE 500 MG in IV 1 EA IV SCH (22:12)
[2024-11-30] VITALS (9 sets, daily range): BP systolic 142–184; BP diastolic 61–104; TEMP 97.6–98.4; O2SAT 94–98
[2024-11-30] MEDS: FIDAXOMICIN 200 MG TAB (DIFICID) PO SCH (00:18)
[2024-11-30 06:17] LABS: HEMATOCRIT 39.8 % (42.0-52.0); HEMOGLOBIN 13.2 g/dl (13.5-17.5); MEAN CORPUSCULAR HEMOGLOBIN 36.1 pg (27.0-33.0); MEAN CORPUSCULAR HGB CONC 33.2 g/dl (32.0-36.5); MEAN CORPUSCULAR VOLUME 108.7 fl (80.0-96.0); PLATELET COUNT, AUTOMATED 209 10^3/uL (150-450); RED BLOOD COUNT 3.66 10^6/uL (4.30-6.10); WHITE BLOOD COUNT 7.9 10^3/uL (4.0-10.0)
[2024-11-30 06:42] LABS: ALBUMIN 2.4 G/DL (3.2-5.2); ALKALINE PHOSPHATASE 91 U/L (40-129); ALT/SGPT 45 U/L (7.0-40); AST/SGOT 47 U/L (<34); BILIRUBIN,TOTAL 0.7 MG/DL (0.3-1.2); BLOOD UREA NITROGEN 10 MG/DL (9-23); CARBON DIOXIDE LEVEL 26 MMOL/L (20-31); CHLORIDE LEVEL 103 MMOL/L (98-107); CREATININE FOR GFR 0.67 MG/DL (0.70-1.30); GLOMERULAR FILTRATION RATE > 90.0 (>42); GLUCOSE, FASTING 95 MG/DL (74-106); POTASSIUM SERUM 4.5 MMOL/L (3.5-5.1); SODIUM LEVEL 138 MMOL/L (136-145); TOTAL PROTEIN 5.7 G/DL (5.7-8.2)
[2024-11-30 08:59] LABS: INR 1.64; PROTHROMBIN TIME 19.6 SECONDS (12.5-14.5)
[2024-11-30] MEDS: LACTOBACILLUS ACIDOPHILUS CAP (BACID) PO SCH (09:03)
[2024-11-30] MEDS: ASPIRIN 81MG ENTERIC TABLET PO SCH (09:03)
[2024-11-30] MEDS: traMADol 50 MG TAB PO PRN ×2 (09:04→17:10)
[2024-11-30] MEDS: OLMESARTAN MEDOXOMIL 20 MG TAB (BENICAR) PO SCH (09:16)
[2024-11-30] MEDS ORDERED: FIDA200TA PO (12:42)
[2024-11-30] MEDS: hydrALAZINE 20MG/ML 1ML VIAL IV ONE (13:16)
[2024-11-30] MEDS: amLODIPine 5 MG TAB PO SCH (17:09)
[2024-11-30] MEDS: TAMSULOSIN 0.4 MG CAP PO SCH (20:17)
[2024-11-30] MEDS: WARFARIN SOD 4MG TAB PO SCH (20:17)
[2024-11-30] MEDS: amLODIPine 5 MG TAB PO ONE (23:36)
[2024-12-01 03:19] VITALS: BP 164/86; TEMP 98.2; O2SAT 90
[2024-12-01 07:18] LABS: HEMATOCRIT 38.7 % (42.0-52.0); HEMOGLOBIN 12.9 g/dl (13.5-17.5); MEAN CORPUSCULAR HEMOGLOBIN 36.8 pg (27.0-33.0); MEAN CORPUSCULAR HGB CONC 33.3 g/dl (32.0-36.5); MEAN CORPUSCULAR VOLUME 110.3 fl (80.0-96.0); PLATELET COUNT, AUTOMATED 238 10^3/uL (150-450); RED BLOOD COUNT 3.51 10^6/uL (4.30-6.10); WHITE BLOOD COUNT 6.9 10^3/uL (4.0-10.0)
[2024-12-01 07:32] LABS: INR 1.37; PROTHROMBIN TIME 17.2 SECONDS (12.5-14.5)
[2024-12-01 07:43] LABS: ALBUMIN 2.5 G/DL (3.2-5.2); ALKALINE PHOSPHATASE 94 U/L (40-129); ALT/SGPT 40 U/L (7.0-40); AST/SGOT 40 U/L (<34); BILIRUBIN,TOTAL 0.9 MG/DL (0.3-1.2); BLOOD UREA NITROGEN 7 MG/DL (9-23); CALCIUM LEVEL 8.1 MG/DL (8.3-10.6); CARBON DIOXIDE LEVEL 28 MMOL/L (20-31); CHLORIDE LEVEL 103 MMOL/L (98-107); CREATININE FOR GFR 0.73 MG/DL (0.70-1.30); GLOMERULAR FILTRATION RATE > 90.0 (>42); GLUCOSE, FASTING 100 MG/DL (74-106); POTASSIUM SERUM 4.2 MMOL/L (3.5-5.1); SODIUM LEVEL 139 MMOL/L (136-145); TOTAL PROTEIN 5.9 G/DL (5.7-8.2)
[2024-12-01 08:00] VITALS: BP 144/73; TEMP 98; O2SAT 96
[2024-12-01] MEDS ORDERED: AMLO1TAB24 PO (08:42)
[2024-12-01] MEDS ORDERED: PROB250C PO (08:42)
[2024-12-01 08:55] VITALS: BP 144/73
[2024-12-01 09:55] VITALS: BP 144/73; TEMP 98; O2SAT 96
== END 2024-12-01 10:31 | disposition home or self-care (01) | DRG 373 ==
LOC: M ED 14:20 → M ED INP 20:24 → M PCU 11-30 02:57
PROVIDERS: ADMIT Student in an Organized Health Care Education/Training Program; ATTEND Student in an Organized Health Care Education/Training Program
DX: A04.72 Enterocolitis due to Clostridium difficile, not specified as recurrent (principal); E87.6 Hypokalemia; I10 Essential (primary) hypertension; I25.10 Atherosclerotic heart disease of native coronary artery without angina pectoris; E78.00 Pure hypercholesterolemia, unspecified; N40.0 Benign prostatic hyperplasia without lower urinary tract symptoms; Z95.5 Presence of coronary angioplasty implant and graft; Z90.49 Acquired absence of other specified parts of digestive tract; Z79.82 Long term (current) use of aspirin; Z79.01 Long term (current) use of anticoagulants; Z79.899 Other long term (current) drug therapy; Z88.0 Allergy status to penicillin; Z88.8 Allergy status to other drugs, medicaments and biological substances; Z91.030 Bee allergy status; Z86.718 Personal history of other venous thrombosis and embolism

== ENCOUNTER → 2024-12-21 | Outpatient (REF) | payer MEDICARE ==
[~2024-12-21] MED LIST changes: +AMLO1TAB24 PO; +ASPI81TA26 PO; +FIDA200TA PO; -FLOM0.4C39 PO; +OLME20TA50 PO; +PROB250C PO; +TAMS-18 PO; +TRAM50TA2 PO
[2024-12-22 16:36] LABS: CLOSTRIDIUM DIFFICILE PCR POSITIVE (NEGATIVE)
== END ==
LOC: M SFHCPLAZ 15:13
PROVIDERS: ATTEND Internal Medicine Infectious Disease
DX: A04.72 Enterocolitis due to Clostridium difficile, not specified as recurrent (principal)

== ENCOUNTER → 2025-03-21 | Outpatient (REF) | payer MEDICARE ==
[~2025-03-21] MED LIST changes: +ALLO100T PO; +DIFI200T PO; +RISATAB3 PO
[2025-03-21 17:37] LABS: INR 2.43
[2025-03-22 14:39] LABS: BASOPHILS 5 % (0-1); EOSINOPHILS 4 % (0-3); LYMPHOCYTES 19 % (16-44); MONOCYTES 3 % (0-5); NEUTROPHILS 69 % (28-66)
[2025-03-22 14:41] LABS: PLATELET ESTIMATE NORMAL (NORMAL)
== END ==
LOC: M LAB REF 17:09
PROVIDERS: ATTEND Internal Medicine
DX: Z79.01 Long term (current) use of anticoagulants (principal); Z86.718 Personal history of other venous thrombosis and embolism